=== PATIENT | female | born 1980 | race Caucasian/White ===

== ENCOUNTER 2017-03-06 17:50 | Emergency (ER) | payer OTHER ==
[~2017-03-06] VITALS: Ht 170.2 cm; Wt 70.3 kg
[2017-03-06] MEDS ORDERED: MICA40TA PO (17:59)
[2017-03-06] MEDS ORDERED: ACETAMINOPHEN 325 MG TAB PO ONE (18:15)
[2017-03-06] MEDS ORDERED: ONDANSETRON 4 MG ORAL DISINTEGRATING TAB (S0181) PO ONE (18:15)
[2017-03-06 18:34] VITALS: BP 149/89
--- NOTE | 2017-03-06 18:37 | REP ---
Clinical: Trauma. Syncope with headache and nausea. Comparison: None . Findings: The ventricles, sulci, and cisterns are normal in position and appearance. Jamil-white differentiation is maintained. No acute intracranial hemorrhage, mass/mass effect, pathology or trauma/injury. No evidence for acute infarction. No extra-axial fluid collection. Calvarium is intact. Paranasal sinuses and mastoid air cells are clear. Impression: Normal noncontrast head CT. No evidence for acute intracranial pathology or trauma/injury. Signed by Stepan Nelson MD 03/06/2017 06:28 P
[2017-03-06 18:42] LABS: BASO % 0.6 % (0.0-1.0); EOS # 0.2 K/mm3 (0.0-0.50); EOS % 2.5 % (0.0-3.0); LARGE UNSTAINED CELL # 0.2 K/mm3 (0.0-0.4); LARGE UNSTAINED CELL % 2.9 % (0.0-4.0); LYMPH # 2.7 K/mm3 (1.5-4.5); LYMPH % 35.4 % (24.0-44.0); MEAN CORPUSCULAR HEMOGLOBIN 31.2 pg (27.0-33.0); MEAN CORPUSCULAR HGB CONC 33.6 g/dl (32.0-36.5); MEAN CORPUSCULAR VOLUME 92.9 fl (80.0-96.0); MONO # 0.4 K/mm3 (0.0-0.8); MONO % 5.8 % (0.0-5.0); NEUTROPHILS % 52.8 % (36.0-66.0); PLATELET COUNT, AUTOMATED 249 k/mm3 (150-450); RED CELL DISTRIBUTION WIDTH 12.5 % (11.5-14.5); WHITE BLOOD COUNT 7.6 K/mm3 (4.0-10.0)
--- NOTE | 2017-03-07 19:56 | ECGEPIP ---
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
== END 2017-03-06 19:05 | disposition home or self-care (01) ==
LOC: M ED 19:02
DX: R55 Syncope and collapse (principal); Z79.899 Other long term (current) drug therapy; Z88.8 Allergy status to other drugs, medicaments and biological substances

== ENCOUNTER → 2017-05-03 | Outpatient (CLI) | payer OTHER ==
[~2017-05-03] MED LIST: MICA40TA PO
--- NOTE | 2017-05-03 23:00 | ECHO ---
DATE OF PROCEDURE: 05/03/2017 DATE OF : 1980 AGE: 36 REFERRING PROVIDER: FELIX Baltazar PATIENT LOCATION: Outpatient REASON FOR THE ECHOCARDIOGRAM: Palpitations, chest pain. 2D MEASUREMENTS: IVS: 0.75 cm LV: 5.3 cm LVPW: 0.77 cm LA: 3.9 cm Aorta: 3.0 cm DOPPLER MEASUREMENTS: Peak velocity across the aortic valve: 0.87 m/s Peak velocity across the LVOT: 0.61 m/s Mitral E: 1.0, Mitral A: 0.44 with a ratio of 2.3 Maximum tricuspid valve velocity: 2.4 m/s 2D COMMENTS: 1. Normal left ventricular size, wall thickness and normal global left ventricular systolic function. The estimated left ventricular systolic ejection fraction is 60-65%. 2. Normal left atrium. Normal right atrium and right ventricle. 3. The atrial septum appeared to be normal without evidence of defect or shunt. 4. Normal aortic root. 5. Trace pericardial effusion noted, no evidence of cardiac tamponade. 6. Minimally calcified aortic valve with normal leaflet excursion. Mildly calcified mitral annulus with normal anterior mitral valve leaflet motion. Normal tricuspid valve and pulmonic valve. The proximal pulmonary artery branches were not well visualized. 7. The inferior vena cava was not visualized. 8. Multiple echogenic structures noted in the liver and also the texture of the liver does not seem to be smooth as in a normal structure, that may be related to underlying liver disease. DOPPLER: It detects trace aortic regurgitation, moderate mitral regurgitation, and moderate tricuspid regurgitation. The calculated pulmonary artery systolic pressure varied between 30-40 mmHg. Assessment of the left ventricular diastolic function was normal. IMPRESSION: 1. Normal global left ventricular systolic and diastolic function. 2. Aortic valve sclerosis with trace aortic regurgitation but no aortic stenosis. 3. Mitral annulus calcification with moderate mitral regurgitation. 4. Moderate tricuspid regurgitation with mild pulmonary hypertension. 5. Abnormal liver texture was noted that may be related to underlying liver disease and, therefore I strongly recommend an ultrasound of the liver and/or CT scan if necessary if no recent workup was done. MTDD
== END ==
LOC: M CARPUL 09:08 → EDUNIT# 12:35
PROVIDERS: ATTEND Physician Assistant
DX: I31.3 Pericardial effusion (noninflammatory) (principal); I70.0 Atherosclerosis of aorta; R93.2 Abnormal findings on diagnostic imaging of liver and biliary tract

== ENCOUNTER 2017-06-02 11:18 | Emergency (ER) | payer OTHER ==
[~2017-06-02] VITALS: Ht 170.2 cm; Wt 76.6 kg
[2017-06-02] MEDS ORDERED: KETOROLAC 30 MG/ML VIAL (J1885) IV ONE (13:00)
[2017-06-02] MEDS ORDERED: NS 1,000 ML IV ONE (13:00)
[2017-06-02 13:46] LABS: BASO % 0.5 % (0.0-1.0); EOS % 0.5 % (0.0-3.0); LARGE UNSTAINED CELL # 0.2 K/mm3 (0.0-0.4); LARGE UNSTAINED CELL % 2.6 % (0.0-4.0); LYMPH # 2.2 K/mm3 (1.5-4.5); LYMPH % 26.5 % (24.0-44.0); MEAN CORPUSCULAR HEMOGLOBIN 31.4 pg (27.0-33.0); MEAN CORPUSCULAR HGB CONC 34.7 g/dl (32.0-36.5); MEAN CORPUSCULAR VOLUME 90.7 fl (80.0-96.0); MONO # 0.5 K/mm3 (0.0-0.8); MONO % 5.9 % (0.0-5.0); NEUTROPHILS # 5.4 K/mm3 (1.8-7.7); NEUTROPHILS % 64.1 % (36.0-66.0); PLATELET COUNT, AUTOMATED 272 k/mm3 (150-450); RED CELL DISTRIBUTION WIDTH 12.4 % (11.5-14.5); WHITE BLOOD COUNT 8.4 K/mm3 (4.0-10.0)
[2017-06-02 13:48] LABS: INR 0.97
[2017-06-02 14:03] LABS: ERYTHROCYTE SEDIMENTATION RATE 17 mm/hr (0-20)
[2017-06-02 14:22] LABS: ANION GAP 9 MEQ/L (8-16); BLOOD UREA NITROGEN 16 MG/DL (7-18); CALCIUM LEVEL 9.1 MG/DL (8.5-10.1); CARBON DIOXIDE LEVEL 27 MEQ/L (21-32); CHLORIDE LEVEL 105 MEQ/L (98-107); CREATININE FOR GFR 0.97 MG/DL (0.55-1.02); GLOMERULAR FILTRATION RATE > 60.0 (>60); GLUCOSE, FASTING 81 MG/DL (70-105); POTASSIUM SERUM 3.4 MEQ/L (3.5-5.1); SODIUM LEVEL 141 MEQ/L (136-145)
[2017-06-02] MEDS ORDERED: ISOVUE-370 76% 100ML VIAL (Q9967) As Ordered ONE (14:25)
--- NOTE | 2017-06-02 14:54 | REP ---
CT pulmonary angiogram: With IV contrast. History: Question pulmonary embolus. Comparison studies: No comparison chest CT. Contrast dose: 75 cc's of Isovue [address] technique: Helical scanning is acquired and overlapping 1.5 mm and contiguous 3 mm axial images are reformatted. In addition, a 3-D work station is deployed to generate thick slab maximum intensity projection images in sagittal and coronal imaging projections. CT pulmonary angiographic findings: There is good opacification of the pulmonary arterial tree and there is no CT evidence of pulmonary embolism. The thoracic aorta is normal in coarse caliber and contour. It enhances homogeneously. Maximal intensity projection images show no filling defect or vessel cutoff on either side to suggest a pulmonary embolus. No pulmonary nodule mass or infiltrate is seen in the lung acuña. No hilar or mediastinal mass or adenopathy is observed. Incidental note is made of multiple hepatic cysts and enlarged polycystic kidneys bilaterally in the lower portions of the scan range. The patient has known polycystic kidney disease. No bony destructive lesion. Impression: 1. No CT evidence of pulmonary embolus. 2. Known polycystic kidney disease with multiple renal and hepatic cysts. 3. Otherwise unremarkable CT pulmonary angiogram. Signed by Abner Duffy MD 06/02/2017 02:45 P
[2017-06-02 14:56] VITALS: BP 131/69
--- NOTE | 2017-06-04 08:29 | ECGEPIP ---
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
== END 2017-06-02 15:03 | disposition home or self-care (01) ==
LOC: M ED 11:18
DX: R07.89 Other chest pain (principal)
CPT/HCPCS: 71275; 80048; 82550; 82553; 84443; 85025; 85610; 85652; 85730; 93005; 96361; 96374; 99283; J1885; Q9967

== ENCOUNTER → 2017-06-25 | Outpatient (CLI) | payer OTHER ==
[~2017-06-25] MED LIST changes: +E-Z-GAS II EFFERVESCENT PACKET (SODIUM BICARB./CITRIC ACID/SIMETHICONE) As Ordered ONE; +E-Z-HD 98% w/w 340GM SUSP BTL As Ordered ONE; +E-Z-PAQUE 96% w/w SUSP 176GM BTL As Ordered ONE
--- NOTE | 2017-06-25 11:13 | REP ---
Double contrast upper GI: History: Abnormal imaging of the GI tract. Abdominal pain in the epigastric region. Anemia. Bloating and eructation. Adult polycystic kidney disease. Comparison CT study 06/20/2015. Fluoroscopy time is 1 minute 5 seconds. 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 Double contrast upper GI shows normal esophagus and gastroesophageal junction. One episode of mild gastroesophageal reflux is observed into the distal esophagus. No hiatal hernia is seen. The stomach displays normal rugal folds and a normal mucosal pattern. Duodenal bulb was fully distensible and clear. C-loop and remainder of the visualized small bowel are unremarkable. Impression: One episode of mild gastroesophageal reflux noted. Otherwise unremarkable double contrast upper GI series. Signed by Abner Duffy MD 06/25/2017 02:15 P
== END ==
LOC: M RAD 08:27
PROVIDERS: ATTEND Internal Medicine Gastroenterology
DX: R93.3 Abnormal findings on diagnostic imaging of other parts of digestive tract (principal); K21.9 Gastro-esophageal reflux disease without esophagitis

== ENCOUNTER → 2017-07-26 | Outpatient (CLI) | payer OTHER ==
[~2017-07-26] MED LIST changes: -E-Z-GAS II EFFERVESCENT PACKET (SODIUM BICARB./CITRIC ACID/SIMETHICONE) As Ordered ONE; -E-Z-HD 98% w/w 340GM SUSP BTL As Ordered ONE; -E-Z-PAQUE 96% w/w SUSP 176GM BTL As Ordered ONE
--- NOTE | 2017-07-30 10:13 | CPSTRESS ---
DATE OF PROCEDURE: 07/26/2017 CARDIOPULMONARY EXERCISE TEST INDICATION FOR TESTING: Shortness of breath with exercise, rule out exercise-induced bronchospasm. The patient was set up for cycle ergometry. Resting spirometry was normal with an FVC of 90% of predicted at 3.7 liters, FEV1 of 99% of predicted at 3.3 liters, and a normal FEV1 to FVC ratio with normal flow volume loop. Resting vitals include a blood pressure of 120/82, oxygen saturation 98% on room air, and a heart rate of 76. This was a maximal test. The patient stated the reason for termination of the test was chest pressure. The lung sounds remained clear throughout the test and pre and post exercise. Aerobic threshold was achieved. VO2 max was 26.7, which is 105% of predicted. RER was 1.14. Achieved 161 alonso, which was 123% of predicted. Highest heart rate achieved was 172, which is 95% of predicted. VO2 per heart rate "ML/beats" was 12, which was 110% of predicted. EKG showed no evidence of ST abnormalities at rest or at peak exercise. There is no ST abnormalities in recovery. No significant EKG abnormalities. Initially there was some hyperventilation. Peak ventilation, VE/VO2 in liters per minute was 74.3, which was 56% of predicted. VE/VO2 is 37, which is 76% of max predicted. There was no oxygen desaturation throughout the entire study and post exercise spirometry was normal with an FVC of 89, FEV1 of 91, and normal flow volume loop. IMPRESSION: 1. Normal cardiopulmonary exercise test. No obvious cause of her chest discomfort at end exercise. No evidence of exercise induced asthma/bronchospasm. [facility]y
== END ==
LOC: M CARPUL 08:29
PROVIDERS: ATTEND Internal Medicine Pulmonary Disease
DX: R06.00 Dyspnea, unspecified (principal)